=== PATIENT | female | born 1955 | race Caucasian/White ===

== ENCOUNTER 2016-07-03 17:02 | Emergency (ER) | payer MEDICAID ==
[2016-07-03] MEDS ORDERED: KETOROLAC 30 MG/ML VIAL ONE (18:07)
[2016-07-03] MEDS ORDERED: SODIUM CHLORIDE 0.9% 1,000 ML ONE (18:07)
[2016-07-03] MEDS ORDERED: ASPIRIN 81 MG CHEW TAB ONE (18:43)
[2016-07-03] MEDS ORDERED: LEVOFLOXACIN 500 MG TAB ONE (20:01)
== END 2016-07-03 20:15 | disposition home or self-care (01) ==
LOC: ER 17:02
DX: J20.9 Acute bronchitis, unspecified (principal)
CPT/HCPCS: 36415; 71010; 80053; 82550; 83735; 84484; 85025; 85610; 85730; 87804; 93005; 96361; 96374